=== PATIENT | female | born 1955 | race Caucasian/White ===

== ENCOUNTER → 2016-06-29 | Outpatient (CLI) | payer BC ==
[~2016-06-29] MED LIST: ESTRACE 1MG1 MG/TAB PO; EXCEDRIN ES PO; INDERAL 10MG10 MG PO; MUCINEX 60600 MG/TA1 PO; NASACORT AQ N16.5 GM NS; NEXIUM 40MG40 MG PO
== END ==
LOC: MC.RAD 08:30
DX: Z12.31 Encounter for screening mammogram for malignant neoplasm of breast (principal); N60.01 Solitary cyst of right breast

== ENCOUNTER → 2017-01-09 | Outpatient (CLI) | payer BC | LOC: MC.RAD 08:17 | DX: Z12.31 Encounter for screening mammogram for malignant neoplasm of breast (principal); N63 Unspecified lump in breast ==

== ENCOUNTER → 2017-01-10 | Outpatient (CLI) | payer BC | LOC: MC.RAD 12:58 | DX: N63 Unspecified lump in breast (principal); N60.02 Solitary cyst of left breast ==

== ENCOUNTER → 2018-01-10 | Outpatient (CLI) | payer BC | LOC: MC.RAD 12-13 08:20 | DX: Z12.31 Encounter for screening mammogram for malignant neoplasm of breast (principal) ==

== ENCOUNTER → 2019-01-27 | Outpatient (CLI) | payer BC | LOC: MC.RAD 07:45 | DX: Z12.31 Encounter for screening mammogram for malignant neoplasm of breast (principal) ==

== ENCOUNTER → 2020-02-22 | Outpatient (CLI) | payer MEDICARE | LOC: ZCOL.LAB 17:45 → EDBD 17:45 | DX: N61.1 Abscess of the breast and nipple (principal) ==

== ENCOUNTER → 2020-03-02 | Outpatient (CLI) | payer MEDICARE | LOC: ZCOL.LAB 16:11 | DX: N61.1 Abscess of the breast and nipple (principal) ==

== ENCOUNTER → 2020-04-22 | Outpatient (CLI) | payer MEDICARE, BC | LOC: MC.RAD 12:58 | DX: N61.0 Mastitis without abscess (principal) ==